=== PATIENT | male | born 1960 | race Caucasian/White ===

== ENCOUNTER → 2021-03-14 | Outpatient (CLI) | payer OTHER | LOC: GIR 11:17 | PROVIDERS: ATTEND Internal Medicine | DX: Z01.89 Encounter for other specified special examinations (principal) | CPT/HCPCS: 84145 ==

== ENCOUNTER → 2022-07-25 | Outpatient (CLI) | payer MEDICAID ==
[~2022-07-25] MED LIST: CATHETER FLUSH 10 ML SYR IVP PRN
--- NOTE | 2022-07-26 15:12 | Diagnostic Imaging Report ---
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 Serum blood glucose level at the time of injection is 100 mg/dL. Patient was administered 9.5 mCi F-18 FDG intravenously in the right hand and PET imaging was performed from the top of the skull to mid thighs. Noncontrast CT was performed for attenuation correction and anatomic correlation. COMPARISON: No prior studies are available for comparison. There is symmetric activity throughout the brain. Soft tissues of the neck are unremarkable. No mediastinal or hilar hypermetabolism is identified. No pulmonary parenchymal hypermetabolism is identified. There is an area of uptake in the posterior right lobe of the liver which is indeterminate. There is physiologic activity throughout the gastrointestinal and genitourinary tracts. Patient does have an ostomy in the right abdomen. No suspicious areas of hypermetabolism are seen. No hypermetabolic lymphadenopathy is detected. IMPRESSION: Unremarkable PET/CT study apart from a small area of uptake in the posterior right lobe of the liver. Correlation with CT with contrast would be recommended. No other suspicious areas of hypermetabolism are identified. Dictated by: Dictated on workstation # [id number]
== END ==
LOC: RAD 07:29
PROVIDERS: ATTEND Internal Medicine Hematology & Oncology
DX: C18.4 Malignant neoplasm of transverse colon (principal); R97.0 Elevated carcinoembryonic antigen [CEA]
CPT/HCPCS: 78815; 82947; A9552

== ENCOUNTER → 2022-08-09 | Outpatient (CLI) | payer MEDICAID ==
[~2022-08-09] MED LIST changes: -CATHETER FLUSH 10 ML SYR IVP PRN; +GADOTERATE 0.5 MMOL/ML (CLARISCAN) 20 ML VIAL IV ONE
--- NOTE | 2022-08-09 09:43 | Diagnostic Imaging Report ---
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 Orbital radiograph showed no metallic opaque orbital foreign body. Note is made of atherosclerotic vascular calcifications along the right carotid. IMPRESSION: Negative for opaque foreign body or contraindication to MRI. Dictated by: Dictated on workstation # [id number]
--- NOTE | 2022-08-09 12:19 | Diagnostic Imaging Report ---
EXAMINATION: MRI of the abdomen with and without contrast. TECHNIQUE: Multiplanar, multisequence MR images of the abdomen were obtained with and without intravenous contrast. HISTORY: Primary adenocarcinoma of transverse colon COMPARISON: None available. FINDINGS: Liver: There is loss of signal on out of phase images compatible with hepatic steatosis. There is a peripherally enhancing lesion within hepatic segment 7 measuring 1.4 cm. This demonstrates mild T2 hyperintensity. The portal and hepatic veins are patent. Gallbladder and Bile Ducts: There is no intrahepatic or extrahepatic bile duct dilation. There are no filling defects in the gallbladder or common bile duct. Pancreas: The pancreas is normal in volume, signal intensity and enhancement. There is no dilation of the main pancreatic duct. Kidneys: There is no hydronephrosis. Adrenal glands: There is no adrenal gland nodule or thickening. Spleen: The spleen is normal in size without focal lesion. Lymph Nodes: There is no suspicious lymphadenopathy. Other: There is no ascites. IMPRESSION: 1. A suspicious peripherally enhancing lesion within the right hepatic lobe measuring 1.4 cm. This finding is concerning for liver metastasis given history of colon cancer. 2. Hepatic steatosis. Dictated by: Dictated on workstation # [id number]
== END ==
LOC: RAD 09:02
PROVIDERS: ATTEND Internal Medicine Hematology & Oncology
DX: C18.4 Malignant neoplasm of transverse colon (principal); R97.0 Elevated carcinoembryonic antigen [CEA]; K76.0 Fatty (change of) liver, not elsewhere classified
CPT/HCPCS: 74183